=== PATIENT | female | born 1995 | race Caucasian/White ===

== ENCOUNTER 2018-06-08 21:12 | Emergency (ER) | END 2018-06-08 23:28 | disposition home or self-care (01) ==

== ENCOUNTER 2019-04-09 23:31 | Emergency (ER) | payer OTHER ==
[~2019-04-09] VITALS: Ht 157.5 cm; Wt 84.2 kg
[~2019-04-09 23:31] MED LIST: CIPR-193 PO; FLUC150T PO; HYDR-4011 PO; INSU100I33 SC; METF100010 PO
[2019-04-09 23:34] VITALS: Ht 157.5 cm; Wt 84.2 kg
[2019-04-10] MEDS ORDERED: ONDANSETRON 4 MG INJ IV STA (00:44)
[2019-04-10] MEDS ORDERED: morphine 2 MG INJ IV STA (00:44)
[2019-04-10] MEDS ORDERED: KETOROLAC 15 MG INJ IV STA (00:44)
[2019-04-10] MEDS ORDERED: SOD CHLORIDE 0.9% 1,000 ML IV STA (00:44)
--- NOTE | 2019-04-10 00:46 | ERD ---
ER Documentation Chief Complaint Chief Complaint FEVER WITH N/V AND ABD PAIN X3DAYS HPI 23-year-old female, with history of type 2 diabetes, presents to the emergency department, complaining of 2 days with persistent, diffuse abdominal pain, worse in the epigastric area, 6/10, associated with fever, nausea and general malaise. ROS All systems reviewed and are negative except as per history of present illness. Medications Home Meds Active Scripts Hydrocodone/Acetaminophen ([place] 5-325 Tablet) 1 Each Tablet, 1 TAB PO Q6H PRN for PAIN, #7 TAB Prov:TASH FISHER MD 04/10/19 Ciprofloxacin Hcl* (Ciprofloxacin Hcl*) 250 Mg Tablet, 250 MG PO BID, #14 TAB Prov:TASH FISHER MD 04/10/19 Fluconazole* (Diflucan*) 150 Mg Tablet, 150 MG PO ONCE, #2 TAB 1 po now and 1 po in 7 days Prov:BRITTANIE HUI DO 06/08/18 Reported Medications Metformin Hcl* (Metformin Hcl*) 1,000 Mg Tablet, 1000 MG PO WITH BREAKFAST DINNE, #60 TAB 06/08/18 Insulin Glargine,Hum.rec.anlog (Basaglar Kwikpen U-100) 100 Unit/1 Ml Insuln.pen, 50 UNIT SC QHS, EA 06/08/18 Allergies Allergies: Coded Allergies: Penicillins (Verified Allergy, Unknown, rash, 06/08/18) PMhx/Soc History of Surgery: Yes (TONSILLECTOMY) Anesthesia Reaction: No Hx Neurological Disorder: No Hx Respiratory Disorders: No Hx Cardiac Disorders: No Hx Psychiatric Problems: Yes (depression, anxiety) Hx Miscellaneous Medical Probl: No Hx Alcohol Use: No Hx Substance Use: No Hx Tobacco Use: No Smoking Status: Never smoker Physical Exam Vitals Vital Signs Date Temp Pulse Resp B/P (MAP) Pulse Ox O2 O2 Flow FiO2 Time Delivery Rate 04/10/19 98.1 97 20 123/62 99 Room Air 02:57 (82) 04/09/19 101.2 118 22 176/93 100 23:34 (120) Physical Exam Const: No acute distress Head: Atraumatic Eyes: Normal Conjunctiva ENT: Normal External Ears, Nose and Mouth. Neck: Full range of motion. No meningismus. Resp: Clear to auscultation bilaterally Cardio: Regular rate and rhythm, no murmurs Abd: Soft, non tender, non distended. Normal bowel sounds Skin: No petechiae or rashes Back: No midline or flank tenderness Ext: No cyanosis, or edema Neur: Awake and alert Psych: Normal Mood and Affect Result Diagram: 04/10/19 0054 04/10/19 0053 Results 24 hrs Laboratory Tests Test 04/10/19 00:13 04/10/19 00:53 04/10/19 00:54 POC Beta HCG, Qualitative NEGATIVE Sodium Level 136 mmol/L Potassium Level 4.3 mmol/L Chloride Level 102 mmol/L Carbon Dioxide Level 22 mmol/L Anion Gap 12 Blood Urea Nitrogen 9 mg/dl Creatinine 0.59 mg/dl Est Glomerular Filtrat Rate mL/min > 60 mL/min Glucose Level 340 mg/dl Calcium Level 9.3 mg/dl Total Bilirubin 0.6 mg/dl Direct Bilirubin 0.00 mg/dl Indirect Bilirubin 0.6 mg/dl Aspartate Amino Transf (AST/SGOT) 32 IU/L Alanine 17 IU/L Aminotransferase (ALT/SGPT) Alkaline Phosphatase 69 IU/L Total Protein 8.5 g/dl Albumin 4.3 g/dl Globulin 4.20 g/dl Albumin/Globulin Ratio 1.02 Lipase 111 U/L White Blood Count 12.0 10^3/ul Red Blood Count 4.89 10^6/ul Hemoglobin 12.6 g/dl Hematocrit 38.7 % Mean Corpuscular Volume 79.1 fl Mean Corpuscular Hemoglobin 25.8 pg Mean Corpuscular 32.6 g/dl Hemoglobin Concent Red Cell Distribution Width 13.4 % Platelet Count 331 10^3/UL Mean Platelet Volume 12.4 fl Immature Granulocytes % 1.300 % Neutrophils % 75.0 % Lymphocytes % 13.6 % Monocytes % 8.4 % Eosinophils % 0.6 % Basophils % 1.1 % Nucleated Red Blood Cells % 0.0 /100WBC Immature Granulocytes # 0.160 10^3/ul Neutrophils # 9.0 10^3/ul Lymphocytes # 1.6 10^3/ul Monocytes # 1.0 10^3/ul Eosinophils # 0.1 10^3/ul Basophils # 0.1 10^3/ul Nucleated Red Blood Cells # 0.0 10^3/ul Urine Color STRAW Urine Clarity CLEAR Urine pH 5.0 Urine Specific [place] 1.028 Urine Ketones TRACE mg/dL Urine Nitrite NEGATIVE mg/dL Urine Bilirubin NEGATIVE mg/dL Urine Urobilinogen NEGATIVE mg/dL Urine Leukocyte Esterase NEGATIVE Dorian/ul Urine Microscopic RBC 3 /HPF Urine Microscopic WBC 7 /HPF Urine Squamous Epithelial Cells FEW /HPF Urine Bacteria FEW /HPF Urine Hemoglobin 3+ mg/dL Urine Glucose 3+ mg/dL Urine Total Protein NEGATIVE mg/dl Current Medications Medications Dose Sig/Ethel Start Time Status Last (Trade) Ordered Route PRN Stop Time Admin Dose Reason Admin Sodium 1,000 ml @ Q1H STAT 04/10/19 DC 04/10/19 Chloride 1,000 mls/hr IV 00:44 04/10/19 01:48 01:43 Morphine 1 mg ONCE STAT 04/10/19 DC 04/10/19 Sulfate IV 00:44 04/10/19 01:48 (morphine) 00:54 Ondansetron 4 mg ONCE STAT 04/10/19 DC 04/10/19 HCl (Zofran IV 00:44 04/10/19 01:48 Inj) 00:54 Ketorolac 15 mg ONCE STAT 04/10/19 DC 04/10/19 Tromethamine IV 00:44 04/10/19 01:48 (Toradol) 00:54 500 mg ONCE ONCE 04/10/19 DC 04/10/19 Ciprofloxacin PO 03:00 04/10/19 02:49 (Cipro) 03:00 Procedures/MDM Vital signs stable. Differential diagnosis include but not limited to: UTI, colitis, gastroenteritis, kidney stones, irritable bowel syndrome, inflammatory bowel syndrome, malabsorption syndrome, cholelithiasis, food intolerance, medication side effect, pancreatitis, diverticulitis, bowel obstruction. Physical examination and clinical presentation consistent most likely with UTI. During the ED course the patient remained stable, no new complaints. The patient received treatment with IV fluids and IV medications presenting overall improvement of the symptoms. Results and clinical impression discussed with the patient who agrees with management. The patient is stable to be treated outpatient and will be discharge d home; some side effects of prescribed medications (headache, rash, nausea, vomiting, diarrhea, drowsiness, habituation, bleeding, hypertension, interactions with other medications) were reviewed. The patient was informed that the evaluation in the emergency department has been done to rule out an acute emergency, therefore, chronic conditions like malignancy or other diseases have not been evaluated; therefore, the patient was instructed to follow up with the primary care provider in the next 48h. If symptoms persist, worsen or new symptoms develop, then patient should return to the ED immediately. Instructions explained and given directly by me to the patient with acknowledgment and demonstrated understanding. Disclaimer: Inadvertent spelling and grammatical errors are likely due to EHR/dictation software use and do not reflect on the overall quality of patient care. Also, please note that the electronic time recorded on this note does not necessarily reflect the actual time of the patient encounter. Departure Diagnosis: Primary Impression: UTI (urinary tract infection) Additional Impression: Uncontrolled diabetes mellitus Condition: Stable Additional Instructions: Thank you very much for allowing us to participate in your care. Your health and safety is our top priority at [facility]. The evaluation in the emergency department has been done to rule out an acute emergency. Chronic, [id number] conditions may have not been evaluated; therefore, you need to follow up with a primary care provider in the next 48h. If symptoms persist, worsen or new symptoms develop, then patient should return to the ED immediately. Call your primary care doctor TOMORROW for an appointment during the next 2-4 days and bring all the information provided. Have prescriptions filled and follow precisely the directions on the label. If the symptoms get worse and your provider is unavailable, return to the Emergency Department immediately. TASH FISHER MD Apr 10, 2019 00:46
[2019-04-10 02:57] VITALS: BP 123/62; PULSE 97; RESP 20
[2019-04-10] MEDS ORDERED: CIPROFLOXACIN 500 MG TAB PO ONE (03:00)
== END 2019-04-10 03:00 | disposition home or self-care (01) ==
LOC: FTE 23:31
DX: N39.0 Urinary tract infection, site not specified (principal); E11.9 Type 2 diabetes mellitus without complications; Z79.4 Long term (current) use of insulin
CPT/HCPCS: 36415; 76705; 80053; 81001; 81025; 83690; 85025; 96361; 96374; 96375; J1885; J2270; J2405; J7030; Z7502; Z7610